=== PATIENT | female | born 1990 | race African-American/Black ===

== ENCOUNTER 2018-03-31 08:19 | Emergency (ER) | payer OTHER ==
[~2018-03-31] VITALS: Ht 154.9 cm; Wt 99.8 kg
[2018-03-31 08:55] LABS: ABSOLUTE NEUTROPHILS 4.8 thou/uL (1.4-8.2); BASOPHILS 0.4 % (0.0-2.0); HEMATOCRIT 34.2 % (37.0-47.0); HEMOGLOBIN 11.8 gm/dL (12.0-15.0); LYMPHOCYTES 24.4 % (24.0-44.0); MCH 32.5 pg (26.0-34.0); MCHC 34.5 g/dL (28.0-37.0); MCV 94.4 fL (80.0-100.0); MONOCYTES 6.7 % (1.0-8.0); PLATELET COUNT 205 thou/uL (150-400); POLYS 67.5 % (36.0-66.0); RBC 3.62 mil/uL (4.20-5.00); RDW 12.8 % (10.5-14.5); WBC 7.2 thou/uL (4.0-11.0)
[2018-03-31 09:00] LABS: CALCIUM 8.7 mg/dL (8.5-10.1); CREATININE 0.9 mg/dL (0.6-1.0); POTASSIUM 3.3 mmol/L (3.5-5.1)
[2018-03-31 09:06] LABS: ALBUMIN 3.5 g/dL (3.4-5.0); TOTAL BILIRUBIN 0.6 mg/dL (<0.1-1.0)
[2018-03-31] MEDS ORDERED: ZOFRAN ODT4 MG PO (10:10)
[2018-03-31] MEDS ORDERED: BENTYL 20 MG TA20 M1 PO (10:10)
[2018-03-31] MEDS ORDERED: LIDOCAINE 2%2 %/5 GM TOP (10:10)
[2018-03-31 10:24] VITALS: BP 109/54
== END 2018-03-31 10:30 | disposition home or self-care (01) ==
LOC: ER 08:19
PROVIDERS: Emergency Medicine
DX: K52.9 Noninfective gastroenteritis and colitis, unspecified (principal); K62.89 Other specified diseases of anus and rectum; Z88.1 Allergy status to other antibiotic agents